=== PATIENT | male | born 1950 | race African-American/Black ===

== ENCOUNTER 2022-05-27 12:44 | Emergency (ER) | payer MEDICARE, SELFPAY ==
--- NOTE | ~2022-05-27 | XR_ITS ---
EXAMINATION: XR CHEST CLINICAL INFORMATION: Swollen ankles. COMPARISON: 01/29/2008 chest radiograph. TECHNIQUE: 2 views of the chest were obtained. FINDINGS: No significant abnormality is noted involving the heart, lungs, mediastinum, bony thorax or soft tissues. XR/XR chest 2V IMPRESSION: No acute cardiopulmonary process.
[2022-05-27 12:48] VITALS: BP 147/87; PULSE 86; RESP 18; TEMP 36.7; O2SAT 98; BMI 31.6
[2022-05-27 14:37] LABS: Anion Gap 13 (12-20); Blood Urea Nitrogen 20 mg/dL (9-16); Calcium 9.2 mg/dL (8.4-10.2); Carbon Dioxide 27 mmol/L (22-29); Chloride 102 mmol/L (96-108); Creatinine Clr Calc Pharmacy 65.8; Estimated Glomerular Filt Rate > 60; Glucose Random 100 mg/dL (60-115); Potassium 4.9 mmol/L (3.3-5.1); Sodium 137 mmol/L (135-145)
[2022-05-27 15:19] LABS: MANUAL DIFF FLAG NO
[2022-05-27 15:24] LABS: Basophils Percent Auto 0.7 % (0-2); Eosinophils Percent Auto 0.9 % (0-4); Hematocrit 33.9 % (42.0-52.0); Hemoglobin 11.5 g/dl (14.0-18.0); Imm Gran Abs Auto 0.01 X10*3/uL (0.00-0.03); Imm Gran Pct Auto 0.2 % (0.0-0.4); Lymphocytes Absolute Auto 0.9 X10*3/uL (1.2-4.9); Lymphocytes Percent Auto 20.1 % (20-40); Mean Corpuscular HGB Conc 33.9 g/dl (31.0-36.0); Mean Corpuscular Hemoglobin 30.8 pg (27.0-33.0); Mean Corpuscular Volume 90.9 fL (80.0-98.0); Mean Platelet Volume 8.5 fL (9.4-12.4); Monocytes Absolute Auto 0.6 X10*3/uL (0.1-1.2); Monocytes Percent Auto 13.9 % (2-11); Neutrophils Absolute Auto 2.8 x10*3/uL (2.0-8.3); Neutrophils Percent Auto 64.2 % (45-73); Platelet Count 201 X10*3/uL (160-400); Red Blood Count 3.73 X10*6/uL (4.60-5.80); White Blood Count 4.4 X10*3/uL (4.8-10.8)
[2022-05-27 15:44] LABS: B Type Natriuretic Peptide 100 pg/mL (<100)
== END 2022-05-27 19:50 | disposition left against medical advice (07) ==
LOC: HO.ED 19:46
PROVIDERS: Emergency Provider Emergency Medicine
DX: R22.43 Localized swelling, mass and lump, lower limb, bilateral (principal); R07.9 Chest pain, unspecified
CPT/HCPCS: 36415; 71046; 80048; 83880; 85025; 99281; 99284

== ENCOUNTER 2022-05-29 11:50 | Emergency (ER) | payer MEDICARE, SELFPAY ==
[2022-05-29 12:00] VITALS: BP 163/96; PULSE 81; O2SAT 100
[2022-05-29 12:20] VITALS: BP 142/70; PULSE 87; RESP 18; TEMP 37.2; O2SAT 97; BMI 31.9
--- NOTE | 2022-05-29 12:36 | ECG_ITS ---
Test Reason : cough Blood Pressure : / mmHG Vent. Rate : 072 BPM Atrial Rate : 072 BPM P-R Int : 148 ms QRS Dur : 082 ms QT Int : 406 ms P-R-T Axes : 061 002 048 degrees QTc Int : 444 ms Normal sinus rhythm Cannot rule out Anterior infarct (cited on or before 29-JAN-2008) Abnormal ECG When compared with ECG of 29-JAN-2008 06:09, No significant change was found Referred By: Yvan Pozo Electronically Signed By:KAREN JUAREZ
[2022-05-29 13:03] LABS: COVID-19 Test Negative (Negative); IDNOW Serial# 16C4AD1C
--- NOTE | 2022-05-29 16:02 | ED.MEDCLEAR ---
HPI - Medical Clearance General Chief complaint: Medical Clearance Stated complaint: swollen ankles Time Seen by Provider: 05/29/22 16:02 History of Present Illness HPI Narrative: This is a 71-year-old male with a history significant for essential hypertension who presents to the emergency department vi [facility] for medical clearance. Patient states that he resides at a nursing home house and left AMA 2 weeks ago. She tells me that he would like to return to the nursing home house however needs medical clearance to do so. He states he is feeling sign, no complaints however has a chronic cough that he has had since childhood. Additionally since moving here 2 weeks ago he has not had his antihypertensives , states he takes amlodipine 5 mg and is requesting a refill of this. per EMS report, the patient had lower extremity swelling upon initial examination , however he does not complain of lower extremity swelling at this time and this was also not appreciated on my exam. there is mild swelling over the right left lateral ankle however he tells me this is from a previous left ankle surgery that required pinning. Denies headache, Vision changes,fever, chills, chest pain, shortness of breath, nausea, vomiting, weakness or numbness. Denies any known history of cardiac disease. Related Information Previous Rx's Medication Instructions Recorded amlodipine 5 mg tablet 5 mg PO DAILY #30 tabs 05/29/22 Allergies Allergy/AdvReac Type Severity Reaction Status Date / Time No Known Allergies Allergy Verified 05/27/22 12:48 Review of Systems Review of Systems: Constitutional : No Weight loss, No Fever, No Chills, No Fatigue, No Malaise ENT/Mouth : No sore throat, No Rhinorrhea Eyes: No Eye Pain, No Swelling, No Redness Cardiovascular : No Chest Pain, No SOB, No Dyspnea on Exertion, No Orthopnea, No Edema, No Palpitations Respiratory : No Cough, No Sputum, No Wheezing Gastrointestinal : No Nausea, No Vomiting, No Diarrhea, No Constipation, No abdominal Pain, No Hematochezia, No Melena Genitourinary : No Dysuria, No Urinary Frequency, No Hematuria, Musculoskeletal : No joint pain, No Myalgias, No Joint Swelling Skin : No Skin Lesions, No rash Neuro : No Weakness, No Numbness, No Dizziness, No Headache All other systems reviewed and are negative Yes all other systems are reviewed and are negative FOR[facility]LY [facility] Past Medical History Attestation statement: The following information was validated with the patient. Source: old records reviewed and nursing notes reviewed Social History Social History Advance Directives: No Advance Directives Information Provided: No Physical Exam Vital Signs: Vital Signs: Last Vital Signs Temp 98.9 F 05/29/22 12:20 Pulse 87 05/29/22 12:20 Resp 18 05/29/22 12:20 BP 158/84 H 05/29/22 17:35 Pulse Ox 97 05/29/22 12:20 O2 Del Method 05/29/22 12:20 BMI result Body Mass Index 31.9 vss Appearance: Alert.? Oriented X3.? No acute distress.? Head: Normocephalic, atraumatic, no step-offs or deformities Eyes: Pupils equal, round and reactive to light.? ENT: Pharynx normal.? Neck: Normal inspection.? Neck supple.? CVS: Normal heart rate and rhythm.? Pulses normal.? Respiratory: No respiratory distress.? Breath sounds normal.? Abdomen: Soft and nontender.? Skin: Skin warm and dry.? Normal skin color.? Normal skin turgor.? Extremities: No lower extremity edema, however mild swelling over the left specialist lateral malleolus status post left ankle surgery requiring pinning.? No calf ttp. Negative homans. 5/5 strength to bilateral upper and lower extremities Back: No midline tenderness, no C-spine tenderness, full range of motion, no CVA tenderness bilaterally Neuro: Oriented X 3.? No motor deficit.? No sensory deficit. Course Reevaluation(s) Reevaluation #1: chemistry with elevated potassium was given 10 medical equivalents of Lokelma, BUN slightly elevated however tolerating PO well. patient very difficult lab draw, multiple people have tried including nursing staff intact as well as myself. I decided that patient have a fingerstick to obtain these basic labs, I feel as though these labs are necessary as patient is requesting refill to his blood pressure medication, and is noted to have an elevated potassium. I tried to compromise with the patient and tell him that we will obtain a repeat CMP and repeat his CBC which initially hemolyzed after patient receives Lokelma. Patient agrees. However, patient requesting to speak to a new provider. I had my co-worker Myah TAYLOR speak to patient. Time: 19:35 Reevaluation #2: CBC appears to be around patient's baseline.Patient took Lokelma with good results , CMP improved. Patient not complaining of any medical complaints at this time. Urine toxicology negative. COVID negative. Patient is cleared to return back to [facility]. Patient will be sent home with a script for amlodipine. At this time patient will be discharged home with strict return precautions. I spoke to Jasmyn from the [facility] who gave me a number that patient can call for patient to be picked up. Time: 20:52 MDM - Medical Clearance MDM Narrative Medical decision making narrative: [id number] This 71-year-old male with a history significant for hypertension who presents to the emergency department via EMS for medical clearance. Requires medical clearance to return to [facility]. Has not taken his amlodipine 5 mg in 2 weeks as he recently moved here and does not have this medication. He does not have any complaints today. physical exam significant for No lower extremity edema, however mild swelling over the left specialist lateral malleolus status post left ankle surgery requiring pinning. regular rate and rhythm. Lungs clear. Abdomen soft nontender nondistended. Plan at this time is to obtain basic labs, UA, COVID. Medical Records Attestation: I reviewed the patient's medical records. Lab Data Attestation: I reviewed the patient's lab results. Result diagrams: 05/29/22 20:07 05/29/22 20:07 Labs: Lab Results 05/29/22 05/29/22 05/29/22 Range/Units 12:42 16:05 16:05 WBC (4.8-10.8) X10*3/uL RBC (4.60-5.80) X10*6/uL Hgb (14.0-18.0) g/dl Hct (42.0-52.0) % MCV (80.0-98.0) fL MCH (27.0-33.0) pg MCHC (31.0-36.0) g/dl RDW (11.0-16.0) % Plt Count (160-400) X10*3/uL MPV (9.4-12.4) fL Immature Gran % (Auto) (0.0-0.4) % Neut % (Auto) (45-73) % Lymph % (Auto) (20-40) % [place]te % (Auto) (2-11) % Eos % (Auto) (0-4) % Baso % (Auto) (0-2) % Lymph # (Auto) (1.2-4.9) X10*3/uL Butte # (Auto) (0.1-1.2) X10*3/uL Eos # (Auto) (0.0-0.4) X10*3/uL Baso # (Auto) (0.0-0.2) X10*3/uL Abs Immat Gran (auto) (0.00-0.03) X10*3/uL Absolute Neuts (auto) (2.0-8.3) x10*3/uL Absolute Nucleated RBC (0.0-0.012) X10*3/uL Nucleated RBC % (auto) (0.0-0.2) /100WBC Sodium (135-145) mmol/L Potassium (3.3-5.1) mmol/L Chloride (96-108) mmol/L Carbon Dioxide (22-29) mmol/L Anion Gap (12-20) BUN (9-16) mg/dL Creatinine (0.5-1.4) mg/dL Estim Creat Clear Calc Estimated GFR Random Glucose (60-115) mg/dL Calcium (8.4-10.2) mg/dL Total Bilirubin (0.0-1.0) mg/dL AST (5-37) U/L ALT (0-40) U/L Alkaline Phosphatase (39-117) U/L B-Natriuretic Peptide (<100) pg/mL Total Protein (6.5-8.0) g/dL Albumin (3.5-5.0) g/dL Urine Color Dark Yellow Urine Appearance Clear Urine pH 6.5 (5.0-8.0) Ur Specific Julian 1.025 (1.005-1.025) Urine Protein 30 (1+) H (Neg-Trace) mg/dL Urine Glucose (UA) Negative (Negative) mg/dL Urine Ketones Trace (Negative) mg/dL Urine Blood Negative (Negative) Urine Nitrite Negative (Negative) Ur Leukocyte Esterase Negative (Negative) Urine RBC 0-2 (0-2) /HPF Urine WBC 0-5 (0-5) /HPF Ur Squamous Epith Cells 0-2 (0-2) /HPF Urine Bacteria None Seen (None Seen) Hyaline Casts 0-2 (0-2) /LPF Urine Opiates Screen Not Detected (Not Detect) Urine Fentanyl Screen Not Detected (Not Detect) Ur Barbiturates Screen Not Detected (Not Detect) Ur Phencyclidine Scrn Not Detected (Not Detect) Ur Amphetamines Screen Not Detected (Not Detect) U Benzodiazepines Scrn Not Detected (Not Detect) Urine Cocaine Screen Not Detected (Not Detect) U Marijuana (THC) Screen Not Detected (Not Detect) COVID-19 (AL) Negative (Negative) COVID-19 Clin Com See Note 05/29/22 05/29/22 05/29/22 Range/Units 17:28 17:28 20:07 WBC 4.5 L (4.8-10.8) X10*3/uL RBC 3.90 L (4.60-5.80) X10*6/uL Hgb 12.1 L (14.0-18.0) g/dl Hct 35.9 L (42.0-52.0) % MCV 92.1 (80.0-98.0) fL MCH 31.0 (27.0-33.0) pg MCHC 33.7 (31.0-36.0) g/dl RDW 13.1 (11.0-16.0) % Plt Count 183 (160-400) X10*3/uL MPV 8.5 L (9.4-12.4) fL Immature Gran % (Auto) 0.2 (0.0-0.4) % Neut % (Auto) 64.5 (45-73) % Lymph % (Auto) 19.2 L (20-40) % Butte % (Auto) 13.8 H (2-11) % Eos % (Auto) 1.6 (0-4) % Baso % (Auto) 0.7 (0-2) % Lymph # (Auto) 0.9 L (1.2-4.9) X10*3/uL Butte # (Auto) 0.6 (0.1-1.2) X10*3/uL Eos # (Auto) 0.1 (0.0-0.4) X10*3/uL Baso # (Auto) 0.0 (0.0-0.2) X10*3/uL Abs Immat Gran (auto) 0.01 (0.00-0.03) X10*3/uL Absolute Neuts (auto) 2.9 (2.0-8.3) x10*3/uL Absolute Nucleated RBC 0.000 (0.0-0.012) X10*3/uL Nucleated RBC % (auto) 0.0 (0.0-0.2) /100WBC Sodium 140 (135-145) mmol/L Potassium 5.6 H (3.3-5.1) mmol/L Chloride 107 (96-108) mmol/L Carbon Dioxide 20 L (22-29) mmol/L Anion Gap 19 (12-20) BUN 23 H (9-16) mg/dL Creatinine 1.04 (0.5-1.4) mg/dL Estim Creat Clear Calc 70.6 Estimated GFR > 60 Random Glucose 102 (60-115) mg/dL Calcium 9.3 (8.4-10.2) mg/dL Total Bilirubin 0.4 (0.0-1.0) mg/dL AST 72 H (5-37) U/L ALT 26 (0-40) U/L Alkaline Phosphatase 92 (39-117) U/L B-Natriuretic Peptide 45 (<100) pg/mL Total Protein 7.4 (6.5-8.0) g/dL Albumin 3.7 (3.5-5.0) g/dL Urine Color Urine Appearance Urine pH (5.0-8.0) Ur Specific Julian (1.005-1.025) Urine Protein (Neg-Trace) mg/dL Urine Glucose (UA) (Negative) mg/dL Urine Ketones (Negative) mg/dL Urine Blood (Negative) Urine Nitrite (Negative) Ur Leukocyte Esterase (Negative) Urine RBC (0-2) /HPF Urine WBC (0-5) /HPF Ur Squamous Epith Cells (0-2) /HPF Urine Bacteria (None Seen) Hyaline Casts (0-2) /LPF Urine Opiates Screen (Not Detect) Urine Fentanyl Screen (Not Detect) Ur Barbiturates Screen (Not Detect) Ur Phencyclidine Scrn (Not Detect) Ur Amphetamines Screen (Not Detect) U Benzodiazepines Scrn (Not Detect) Urine Cocaine Screen (Not Detect) U Marijuana (THC) Screen (Not Detect) COVID-19 (AL) (Negative) COVID-19 Clin Com 05/29/22 Range/Units 20:07 WBC (4.8-10.8) X10*3/uL RBC (4.60-5.80) X10*6/uL Hgb (14.0-18.0) g/dl Hct (42.0-52.0) % MCV (80.0-98.0) fL MCH (27.0-33.0) pg MCHC (31.0-36.0) g/dl RDW (11.0-16.0) % Plt Count (160-400) X10*3/uL MPV (9.4-12.4) fL Immature Gran % (Auto) (0.0-0.4) % Neut % (Auto) (45-73) % Lymph % (Auto) (20-40) % [place] % (Auto) (2-11) % Eos % (Auto) (0-4) % Baso % (Auto) (0-2) % Lymph # (Auto) (1.2-4.9) X10*3/uL [place] # (Auto) (0.1-1.2) X10*3/uL Eos # (Auto) (0.0-0.4) X10*3/uL Baso # (Auto) (0.0-0.2) X10*3/uL Abs Immat Gran (auto) (0.00-0.03) X10*3/uL Absolute Neuts (auto) (2.0-8.3) x10*3/uL Absolute Nucleated RBC (0.0-0.012) X10*3/uL Nucleated RBC % (auto) (0.0-0.2) /100WBC Sodium 138 (135-145) mmol/L Potassium 4.5 (3.3-5.1) mmol/L Chloride 104 (96-108) mmol/L Carbon Dioxide 25 (22-29) mmol/L Anion Gap 14 (12-20) BUN 22 H (9-16) mg/dL Creatinine 1.10 (0.5-1.4) mg/dL Estim Creat Clear Calc 66.7 Estimated GFR > 60 Random Glucose 106 (60-115) mg/dL Calcium 9.2 (8.4-10.2) mg/dL Total Bilirubin 0.4 (0.0-1.0) mg/dL AST 66 H (5-37) U/L ALT 27 (0-40) U/L Alkaline Phosphatase 91 (39-117) U/L B-Natriuretic Peptide (<100) pg/mL Total Protein 7.4 (6.5-8.0) g/dL Albumin 3.9 (3.5-5.0) g/dL Urine Color Urine Appearance Urine pH (5.0-8.0) Ur Specific Julian (1.005-1.025) Urine Protein (Neg-Trace) mg/dL Urine Glucose (UA) (Negative) mg/dL Urine Ketones (Negative) mg/dL Urine Blood (Negative) Urine Nitrite (Negative) Ur Leukocyte Esterase (Negative) Urine RBC (0-2) /HPF Urine WBC (0-5) /HPF Ur Squamous Epith Cells (0-2) /HPF Urine Bacteria (None Seen) Hyaline Casts (0-2) /LPF Urine Opiates Screen (Not Detect) Urine Fentanyl Screen (Not Detect) Ur Barbiturates Screen (Not Detect) Ur Phencyclidine Scrn (Not Detect) Ur Amphetamines Screen (Not Detect) U Benzodiazepines Scrn (Not Detect) Urine Cocaine Screen (Not Detect) U Marijuana (THC) Screen (Not Detect) COVID-19 (AL) (Negative) COVID-19 Clin Com ECG Data Attestation: I personally reviewed and interpreted this ECG as follows: ECG interpretation date: 05/29/22 ECG interpretation time: 20:56 Prior ECG tracings: available for review Interpretation: Ventricular rate of 72, RI normal, QRS normal, QT / QTC normal. EKG with normal sinus rhythm, no ST elevations or inversions concerning for ischemia. Critical Care Time Critical Care Time Critical Care Time: No Discharge Plan Discharge Clinical Impression: Normal physical exam, Medication refill Patient Disposition: Home, Self-Care Instructions: Medicine Refill (ED) Additional Instructions: Take your medications as prescribed. If you were prescribed antibiotics today, it is important that you take your medication to their entirety, do not skip any doses, do not finish them early. Follow-up with your primary care provider this week. Return to the emergency department with new or worsening symptoms. Such as fevers, chills, chest pain, shortness of breath, nausea, vomiting, dizziness, headache, vision changes, lethargy In case of emergency call 911 You have been medically cleared at this time and even return to your program. I sent amlodipine 5 mg p.o. daily to your pharmacy. Please follow up with PCP. Prescriptions: New amlodipine 5 mg tablet 5 mg PO DAILY Qty: 30 0RF Referrals: Physician,Unknown J [Primary Care Provider] - 2 days
[2022-05-29 16:13] LABS: Appearance Urine Clear; Color Urine Dark Yellow; Glucose Urine UA Negative (Negative); Leukocyte Esterase Urine Negative (Negative); Nitrite Urine Negative (Negative); PH 6.5 (5.0-8.0); Specific Gravity - Urine 1.025 (1.005-1.025); Urine Blood Negative (Negative); Urine Ketones Trace mg/dL (Negative); Urine Protein 30 (1+) mg/dL (Neg-Trace)
[2022-05-29 16:20] LABS: Bacteria Urine None Seen (None Seen); Hyaline Casts Urine 0-2 /LPF (0-2); RBC Urine 0-2 /HPF (0-2); Squamous Epithelial Cell Urine 0-2 /HPF (0-2); WBC Urine 0-5 /HPF (0-5)
[2022-05-29 16:25] LABS: Amphetamine Screen Urine Not Detected (Not Detect); Barbiturates, Urine Not Detected (Not Detect); Benzodiazepines Screen Urine Not Detected (Not Detect); Cannabinoid Screen Urine Not Detected (Not Detect); Cocaine Screen Urine Not Detected (Not Detect); Fentanyl, urine Not Detected (Not Detect); Opiate Screen Urine Not Detected (Not Detect); Phencyclidine Screen Urine Not Detected (Not Detect)
--- NOTE | 2022-05-29 16:26 | PC.NURSE ---
Provider notified about patient being a difficult blood draw.
[2022-05-29 17:35] VITALS: BP 158/84
[2022-05-29] MEDS: amLODIPine Besylate 5 MG TABLET PO (17:39)
[2022-05-29 18:06] LABS: B Type Natriuretic Peptide 45 pg/mL (<100)
[2022-05-29 18:11] LABS: Alanine Aminotransferase 26 U/L (0-40); Albumin Level 3.7 g/dL (3.5-5.0); Alkaline Phosphatase 92 U/L (39-117); Anion Gap 19 (12-20); Aspartate Amino Transferase 72 U/L (5-37); Bilirubin Total 0.4 mg/dL (0.0-1.0); Blood Urea Nitrogen 23 mg/dL (9-16); Calcium 9.3 mg/dL (8.4-10.2); Carbon Dioxide 20 mmol/L (22-29); Chloride 107 mmol/L (96-108); Creatinine Clr Calc Pharmacy 70.6; Estimated Glomerular Filt Rate > 60; Glucose Random 102 mg/dL (60-115); Potassium 5.6 mmol/L (3.3-5.1); Sodium 140 mmol/L (135-145); Total Protein 7.4 g/dL (6.5-8.0)
[2022-05-29] MEDS: Sodium Zirconium Cyclosilicate 10 GM POWD.PACK PO (19:30)
--- NOTE | 2022-05-29 19:41 | PC.NURSE ---
Pharmacy instructed that it iis ok to give lokelma with amplodipine given 2 hours ago.
--- NOTE | 2022-05-29 19:41 | PC.NURSE ---
BRANDON Lopez instructed patient does not need to be on heart monitor.
[2022-05-29 20:17] LABS: Basophils Percent Auto 0.7 % (0-2); Eosinophils Absolute Auto 0.1 X10*3/uL (0.0-0.4); Eosinophils Percent Auto 1.6 % (0-4); Hematocrit 35.9 % (42.0-52.0); Hemoglobin 12.1 g/dl (14.0-18.0); Imm Gran Abs Auto 0.01 X10*3/uL (0.00-0.03); Imm Gran Pct Auto 0.2 % (0.0-0.4); Lymphocytes Absolute Auto 0.9 X10*3/uL (1.2-4.9); Lymphocytes Percent Auto 19.2 % (20-40); Mean Corpuscular HGB Conc 33.7 g/dl (31.0-36.0); Mean Corpuscular Volume 92.1 fL (80.0-98.0); Mean Platelet Volume 8.5 fL (9.4-12.4); Monocytes Absolute Auto 0.6 X10*3/uL (0.1-1.2); Monocytes Percent Auto 13.8 % (2-11); Neutrophils Absolute Auto 2.9 x10*3/uL (2.0-8.3); Neutrophils Percent Auto 64.5 % (45-73); Platelet Count 183 X10*3/uL (160-400); Red Cell Distribution Width 13.1 % (11.0-16.0); White Blood Count 4.5 X10*3/uL (4.8-10.8)
[2022-05-29 20:34] LABS: MANUAL DIFF FLAG NO
[2022-05-29 20:45] LABS: Alanine Aminotransferase 27 U/L (0-40); Albumin Level 3.9 g/dL (3.5-5.0); Alkaline Phosphatase 91 U/L (39-117); Anion Gap 14 (12-20); Aspartate Amino Transferase 66 U/L (5-37); Bilirubin Total 0.4 mg/dL (0.0-1.0); Blood Urea Nitrogen 22 mg/dL (9-16); Calcium 9.2 mg/dL (8.4-10.2); Carbon Dioxide 25 mmol/L (22-29); Chloride 104 mmol/L (96-108); Creatinine Clr Calc Pharmacy 66.7; Estimated Glomerular Filt Rate > 60; Glucose Random 106 mg/dL (60-115); Potassium 4.5 mmol/L (3.3-5.1); Sodium 138 mmol/L (135-145); Total Protein 7.4 g/dL (6.5-8.0)
== END 2022-05-29 20:57 | disposition home or self-care (01) ==
PROVIDERS: Physician Assistant; Emergency Provider Emergency Medicine
DX: Z02.2 Encounter for examination for admission to residential institution (principal); Z76.0 Encounter for issue of repeat prescription; Z20.822 Contact with and (suspected) exposure to COVID-19; I10 Essential (primary) hypertension
CPT/HCPCS: 36415; 80053; 80307; 81001; 83880; 85025; 87635; 93005; 99283

== ENCOUNTER 2022-06-04 15:18 | Emergency (ER) | payer MEDICARE, SELFPAY ==
--- NOTE | ~2022-06-04 | XR_ITS ---
EXAMINATION: XR CHEST CLINICAL INFORMATION: Coughing after eating. COMPARISON: 05/27/2022 chest radiographs. TECHNIQUE: 2 views of the chest were obtained. FINDINGS: No significant abnormality is noted involving the heart, lungs, mediastinum, bony thorax or soft tissues. XR/XR chest 2V IMPRESSION: No acute cardiopulmonary process.
[2022-06-04 17:12] VITALS: BP 180/82; PULSE 80; RESP 19; TEMP 36.8; O2SAT 99; BMI 30.7
--- NOTE | 2022-06-04 21:41 | ED_ITS ---
HPI - General Adult General Chief complaint: General Medical Stated complaint: bad cough Time Seen by Provider: 06/04/22 17:18 Source: patient Mode of arrival: ambulatory Limitations: no limitations History of Present Illness HPI narrative: 71-year-old male presents with swallowing concerns. States that he has been coughing after eating meals. Patient has a history of throat cancer with radiation and chemo, has been in remission for approximately 5 years. He does not report any abnormal weight loss, fevers, chills, diaphoresis distention dysuria, hematuria, chest pain or pressure, palpitations or shortness of breath Onset (ago): week(s) Radiation: non-radiation Severity: mild Severity scale (1-10): 2 Pain Consistency: intermittent Exacerbating factors: eating Associated symptoms: denies other symptoms Treatments prior to arrival: none Related Data Previous Rx's Medication Instructions Recorded amlodipine 5 mg tablet 5 mg PO DAILY #30 tabs 05/29/22 Allergies Allergy/AdvReac Type Severity Reaction Status Date / Time No Known Allergies Allergy Verified 05/27/22 12:48 Review of Systems Review of Systems: Constitutional: No Fever, No Chills ENT/Mouth: No Ear Pain, No Hoarseness, No sore throat Eyes: No Eye Pain, No Swelling, No Redness, No Foreign Body Cardiovascular: No Chest Pain, No SOB Respiratory: Positive Cough, No Dyspnea Gastrointestinal: No Nausea, No Vomiting, No Diarrhea, No abdominal Pain Genitourinary: No Dysuria, No Hematuria Musculoskeletal: positive joint pain, No Myalgias, No Joint Swelling Skin: No Skin lacerations, No rash Neuro: No Weakness, No Numbness, No Paresthesias, No Loss of Consciousness, No Dizziness, No Headache Psych: No Anxiety/Panic, No Depression Heme/Lymph: no easy bruising, no Lymphadenopathy Endocrine: No Polyuria, No Polydipsia Yes all other systems are reviewed and are negative [facility]LY [facility] Past Medical History Attestation statement: The following information was validated with the patient. Source: old records reviewed Social History Social History Advance Directives: No Advance Directives Information Provided: No Physical Exam ED Vital Signs: Vital Signs - 24 hr 06/04/22 17:12 06/04/22 23:16 Temperature 98.3 F 97.7 F Pulse Rate 80 81 Respiratory Rate 19 20 Blood Pressure 180/82 H 160/89 H Pulse Oximetry 99 97 Oxygen Delivery Method Room Air Room Air BMI result Body Mass Index 30.7 Appearance: Alert. Oriented X3. No acute distress. Eyes: Pupils equal, round and reactive to light. ENT: Pharynx normal. Neck: Normal inspection. Neck supple. CVS: Normal heart rate and rhythm. Pulses normal. Respiratory: No respiratory distress. Breath sounds normal. Abdomen: Soft and nontender. Skin: Skin warm and dry. Normal skin color. Normal skin turgor. Extremities: No lower extremity edema. Gait well-balanced well coordinated. Neuro: No motor deficit. No sensory deficit. Cranial nerves 2-12 intact. Course Course Course Narrative: 71-year-old male presents for evaluation for coughing after eating, has a history of throat cancer with radiation and chemotherapy, has been in remission for approximately 5 years. Has high blood pressure takes amlodipine daily. He has not reported any weight loss, does not feel like there is a foreign body stuck in his esophagus, has denied fevers, chills, and hemoptysis. X-rays were taken while patient was in the emergency department rating room, x-rays are negative for acute findings. Labs will be drawn by fingerstick as patient is a difficult stick, and was evaluated on 05/29/2022 for medication refill. It is interesting to note that this patient did not mention his cough or difficulty swallowing during the evaluation on 05/29/2022. Patient is speaking in complete sentences, able to manage secretions, and has even unlabored respirations without tracheal stridor or wheezing. His lab values are consistent with prior values. At this time I feel that is highly recommended the pain this patient follow-up with Gastroenterology for upper endoscopy, as this patient does not have any significant airway issues or inability to swallow. He does understand that he must follow up with Gastroente rology as he does have a significant history of throat cancer. He understands the severity of not following through with recommended specialist. Patient verbalized understanding of and agrees to plan of care discharge home. Verbalized understanding of signs and symptoms indicating need for emergent intervention. Medical Decision Making Differential Diagnosis Differential Diagnosis: Throat cancer, aspiration, pneumonia, COVID Medical Records Medical records reviewed: Yes I reviewed the patient's medical records. Lab Data Lab results reviewed: Yes I reviewed the patient's lab results. Result diagrams: 06/04/22 22:25 06/04/22 22:25 Labs: Lab Results 06/04/22 06/04/22 06/04/22 Range/Units 22:01 22:25 22:25 WBC 3.7 L (4.8-10.8) X10*3/uL RBC 4.12 L (4.60-5.80) X10*6/uL Hgb 12.5 L (14.0-18.0) g/dl Hct 37.6 L (42.0-52.0) % MCV 91.3 (80.0-98.0) fL MCH 30.3 (27.0-33.0) pg MCHC 33.2 (31.0-36.0) g/dl RDW 12.6 (11.0-16.0) % Plt Count 213 (160-400) X10*3/uL MPV 8.5 L (9.4-12.4) fL Absolute Nucleated RBC 0.000 (0.0-0.012) X10*3/uL Nucleated RBC % (auto) 0.0 (0.0-0.2) /100WBC Sodium 139 (135-145) mmol/L Potassium 5.0 (3.3-5.1) mmol/L Chloride 105 (96-108) mmol/L Carbon Dioxide 23 (22-29) mmol/L Anion Gap 16 (12-20) BUN 25 H (9-16) mg/dL Creatinine 1.01 (0.5-1.4) mg/dL Estim Creat Clear Calc 71.3 Estimated GFR > 60 Random Glucose 87 (60-115) mg/dL Calcium 8.9 (8.4-10.2) mg/dL Total Bilirubin 0.7 (0.0-1.0) mg/dL AST 41 H (5-37) U/L ALT 24 (0-40) U/L Alkaline Phosphatase 93 (39-117) U/L Total Protein 7.5 (6.5-8.0) g/dL Albumin 3.9 (3.5-5.0) g/dL COVID-19 (AL) Negative (Negative) COVID-19 Clin Com See Note Imaging Data Chest x-ray: Attestation: I personally reviewed and interpreted this imaging study as follows: Radiologist's impression: EXAMINATION: XR CHEST CLINICAL INFORMATION: Coughing after eating. COMPARISON: 05/27/2022 chest radiographs. TECHNIQUE: 2 views of the chest were obtained. FINDINGS: No significant abnormality is noted involving the heart, lungs, mediastinum, bony thorax or soft tissues. XR/XR chest 2V IMPRESSION: No acute cardiopulmonary process. ECG Data Attestation: I personally reviewed and interpreted this ECG as follows: Prior ECG tracings: available for review Interpretation: Vent. Rate : 072 BPM ? ? Atrial Rate : 072 BPM ?? P-R Int : 148 ms? QRS Dur : 082 ms ? ? QT Int : 406 ms ? ? ? P-R-T Axes : 061 002 048 degrees ?? QTc Int : 444 ms ? Normal sinus rhythm Cannot rule out Anterior infarct (cited on or before 29-JAN-2008) Abnormal ECG When compared with ECG of 29-JAN-2008 06:09, No significant change was found ? Discharge Plan Discharge Clinical Impression: Difficulty in swallowing Patient Disposition: Home, Self-Care Instructions: Soft Diet (ED), Chronic Dysphagia (DC) Additional Instructions: You were evaluated for difficulty swallowing, particularly coughing after eating. You have a history of throat cancer, you must follow-up with Gastroenterology for upper endoscopy. Please call [facility] Dr. Dow, I provided the phone number for you. Please drink plenty of fluids. Please follow a soft diet until you are evaluated by Gastroenterology. Thank you for choosing this emergency department for evaluation. Please follow-up with primary care physician as needed. Return to the emergency department for any new, concerning, or worsening symptoms. Prescriptions: No Action amlodipine 5 mg tablet 5 mg PO DAILY Qty: 30 0RF Referrals: Cameron Dow [Physician] - 2 days (Difficulty swallowing, history of throat cancer) Interventions: ED Discharge Assessment Last Done: 06/04/22 23:25 Discharge Date/Time: 06/04/22 23:27
--- NOTE | 2022-06-04 22:02 | PC.NURSE ---
pt is a difficult stick lab called. provider aware.
[2022-06-04 22:31] LABS: Hematocrit 37.6 % (42.0-52.0); Hemoglobin 12.5 g/dl (14.0-18.0); Mean Corpuscular HGB Conc 33.2 g/dl (31.0-36.0); Mean Corpuscular Hemoglobin 30.3 pg (27.0-33.0); Mean Corpuscular Volume 91.3 fL (80.0-98.0); Mean Platelet Volume 8.5 fL (9.4-12.4); Platelet Count 213 X10*3/uL (160-400); Red Blood Count 4.12 X10*6/uL (4.60-5.80); Red Cell Distribution Width 12.6 % (11.0-16.0); White Blood Count 3.7 X10*3/uL (4.8-10.8)
[2022-06-04 22:50] LABS: Alanine Aminotransferase 24 U/L (0-40); Albumin Level 3.9 g/dL (3.5-5.0); Alkaline Phosphatase 93 U/L (39-117); Anion Gap 16 (12-20); Aspartate Amino Transferase 41 U/L (5-37); Bilirubin Total 0.7 mg/dL (0.0-1.0); Blood Urea Nitrogen 25 mg/dL (9-16); Calcium 8.9 mg/dL (8.4-10.2); Carbon Dioxide 23 mmol/L (22-29); Chloride 105 mmol/L (96-108); Creatinine Clr Calc Pharmacy 71.3; Estimated Glomerular Filt Rate > 60; Glucose Random 87 mg/dL (60-115); Sodium 139 mmol/L (135-145); Total Protein 7.5 g/dL (6.5-8.0)
[2022-06-04 23:09] LABS: COVID-19 Test Negative (Negative)
[2022-06-04 23:16] VITALS: BP 160/89; PULSE 81; RESP 20; TEMP 36.5; O2SAT 97
== END 2022-06-04 23:27 | disposition home or self-care (01) ==
PROVIDERS: Emergency Provider Internal Medicine
DX: R05.9 Cough, unspecified (principal); R13.10 Dysphagia, unspecified; Z20.822 Contact with and (suspected) exposure to COVID-19; Z79.899 Other long term (current) drug therapy
CPT/HCPCS: 36415; 71046; 80053; 85027; 87635; 99282; 99283

== ENCOUNTER 2022-06-13 21:26 | Emergency (ER) | payer MEDICARE, SELFPAY ==
[2022-06-13 21:32] VITALS: BP 138/76; PULSE 112; O2SAT 98
--- NOTE | 2022-06-13 21:39 | PC.NURSE ---
pt given a tuna sandwhich and orange juice for a ems poc 60. pt is calm and cooperative. alert and oriented x3 no s/s of distress. seeking detox.
--- NOTE | 2022-06-13 22:08 | ED_ITS ---
HPI - Alcohol General Stated Complaint: ETOH Time Seen by Provider: 06/13/22 22:08 Source: patient Mode of arrival: EMS History of Present Illness HPI narrative: 71-year-old male, pleasant, brought in by EMS for alcohol intoxication and req uesting detox. He states that he has been drinking as much as he can get for the past 2 weeks. He otherwise denies any fever, chills, shortness of breath, chest pain/palpitations. Related Data Previous Rx's Medication Instructions Recorded amlodipine 5 mg tablet 5 mg PO DAILY #30 tabs 05/29/22 Allergies Allergy/AdvReac Type Severity Reaction Status Date / Time No Known Allergies Allergy Verified 05/27/22 12:48 Review of Systems Review of Systems: Pertinent positives and negatives as stated in HPI 10 point review of systems is otherwise negative. PMFSH Past Medical History Source: nursing notes reviewed Physical Exam ED Vital Signs: VITAL SIGNS: Reviewed. GENERAL: Elderly, well nourished, in no acute distress. HEAD: Normocephalic/atraumatic EYES: PERRLA, EOMI EARS: Ext canals without abnormality OROPHARYNX: no oral lesions noted, posterior pharynx clear LUNGS: Normal breath sounds. No adventitious sounds or accessory muscle use. CARDIOVASCULAR: Regular rate and rhythm without noted murmurs, no JVD or lower extremity edema. ABDOMEN: Soft, non-tender, non-distended with bowel sounds. MUSCULOSKELETAL: No tenderness, deformities, or effusions noted on gross inspection. EXTREMITIES: No cyanosis, clubbing or edema. SKIN: Inspection of the skin reveals no rashes NEUROLOGIC: Alert and oriented x 4. Strength and sensation to light touch were grossly intact x 4. Course Course Course Narrative: 71-year-old male with history and clinical presentation consistent with alcohol intoxication requesting detox. Patient does report an alcoholic seizure at the age of 21 but denies any since that time. He denies any other medical conditions and is currently tolerating oral intake without difficulties and is calm and cooperative. Reevaluation(s) Reevaluation #1: Patient placed in physician observation because the patient needed more time for evaluation by care team for possible detox placement. At the time observation was started the patient's vital signs were stable, patient is alert and oriented, neuro: Nonfocal, CV RRR, lungs clear Time: 22:19 Discharge Plan Discharge Clinical Impression: Alcohol dependence, Alcohol intoxication Patient Disposition: Still a Patient Prescriptions: No Action amlodipine 5 mg tablet 5 mg PO DAILY Qty: 30 0RF
[2022-06-13 22:23] VITALS: BP 171/81; PULSE 106; RESP 18; TEMP 36.8; O2SAT 97; BMI 31.4
[2022-06-13 23:09] LABS: COVID-19 Test Negative (Negative)
[2022-06-14 05:08] VITALS: BP 153/74; PULSE 107; RESP 15; TEMP 36.8; O2SAT 96
[2022-06-14 06:09] LABS: Ethanol 69 mg/dL
[2022-06-14] MEDS: LORazepam 1 MG TABLET PO (06:35)
[2022-06-14 08:28] VITALS: BP 154/64; PULSE 101; RESP 14; TEMP 36.9; O2SAT 96
--- NOTE | 2022-06-14 10:43 | PC.NURSE ---
Care team called for consult
[2022-06-14 11:34] VITALS: BP 144/76; PULSE 102; RESP 18; O2SAT 96
--- NOTE | 2022-06-14 11:49 | MHC.CARE ---
Pt reports he was recently admitted to [facility] but d/c prior to completing tx because he thought they weren't helpful. He tried to be admitted into [facility] after d/c from [facility] but was not accepted. He reports working with manager of case management [facility], though he was unable to remember case manger's name or agency. Pt reports ETOH use daily for the past 2 weeks. [facility] [place] currently has bed openings and is reviewing pt referral
== END 2022-06-14 14:10 | disposition home or self-care (01) ==
PROVIDERS: Emergency Provider Student in an Organized Health Care Education/Training Program
DX: F10.220 Alcohol dependence with intoxication, uncomplicated (principal); Y90.3 Blood alcohol level of 60-79 mg/100 ml; Z20.822 Contact with and (suspected) exposure to COVID-19; Z79.899 Other long term (current) drug therapy
CPT/HCPCS: 82077; 87635; 99283; 99284